=== PATIENT | female | born 1960 | race American Indian/Alaskan Native ===

== ENCOUNTER 2018-10-11 10:34 | Outpatient (CLI) | payer OTHER ==
--- NOTE | 2018-10-11 13:57 | Ultrasound Report ---
ULTRASOUND ABDOMEN COMPLETE: TECHNIQUE: Transabdominal ultrasound with color Doppler interrogation. HISTORY: Possible gallstone. COMPARISON: none. FINDINGS: LIVER: Normal. BILIARY SYSTEM: Trace sludge is suspected in the gallbladder. There also appears to be 1 or 2 tiny gallbladder polyps measuring up to 3 mm. No evidence for shadowing gallstones or biliary dilatation. The CBD measures 3 mm. PANCREAS: Normal. SPLEEN: Normal. KIDNEYS: Normal. AORTA/IVC: Normal. ASCITES: None. IMPRESSION: Trace sludge and a few small polyps in the gallbladder. No cholelithiasis is identified.
== END 2018-10-11 10:35 | disposition home or self-care (01) ==
LOC: US 10:34
PROVIDERS: ATTEND Internal Medicine
DX: R10.11 Right upper quadrant pain (principal)
CPT/HCPCS: 76700